=== PATIENT | male | born 1970 | race Caucasian/White ===

== ENCOUNTER 2020-04-13 12:35 | Outpatient (CLI) | payer OTHER | END 2020-04-13 12:36 | disposition home or self-care (01) | LOC: COV 12:35 | PROVIDERS: ATTEND Family Medicine | DX: R50.9 Fever, unspecified (principal); R06.02 Shortness of breath; R53.83 Other fatigue; J02.9 Acute pharyngitis, unspecified; Z20.828 Contact with and (suspected) exposure to other viral communicable diseases ==

== ENCOUNTER 2020-08-29 10:23 | Outpatient (CLI) | payer OTHER | END 2020-08-29 10:24 | disposition critical access hospital (66) | LOC: EMS 10:23 | PROVIDERS: ATTEND Emergency Medicine | DX: R10.32 Left lower quadrant pain (principal); R11.2 Nausea with vomiting, unspecified | CPT/HCPCS: A0425; A0427 ==

== ENCOUNTER 2020-08-29 10:50 | Emergency (ER) | payer OTHER ==
--- NOTE | 2020-08-29 10:55 | ED Physician Documentation ---
PD HPI BACK PAIN - Stated complaint Stated Complaint: L FLANK PX - History obtained from History obtained from: Patient, EMS - History of Present Illness Timing - onset: Enter time (729), Today Timing - duration: Hours Timing - details: Abrupt onset, Still present Location: Mid, Left Quality: Pain, Spasm, Sharp Associated symptoms: No: Fever, Weakness, Numbness, Incontinent of urine, Unable to urinate, Hematuria, Incontinent of stool Improves with: Nothing Worsened by: Other (nothing) Similar symptoms before: Diagnosis (kidney stone) Recently seen: Not recently seen - Additional information Additional information: Previously well 50-year-old male began to have developed pain in the left flank at approximately 7:30 AM. He has severe pain radiating down into his groin and he has had pain similar to this previously with a kidney stone. Eventually called 911 in route to the hospital he was administered 10 mg of morphine and 4 of Zofran without relief of his pain. He comes into the emergency department now writhing in pain to the left flank. PD PAST MEDICAL HISTORY - Present Medications Home Medications: Ambulatory Orders Medication Instructions Recorded Confirmed HYDROcod/ACETAM 5/325 [[place] 5/325] 1 - 2 ea PO Q6H PRN #12 tab 08/29/20 - Allergies Allergies/Adverse Reactions: Allergies Allergy/AdvReac Type Severity Reaction Status Date / Time Sulfa (Sulfonamide Allergy Anaphylaxis Verified 08/29/20 11:12 Antibiotics) PD ED PE NORMAL - Vitals Vital signs reviewed: Yes (Hypertensive) - General General: Alert and oriented X 3, Well developed/nourished, Other (50-year-old male writhing and grunting in pain.) - HEENT HEENT: Atraumatic, PERRL, EOMI - Neck Neck: Supple, no meningeal sign - Cardiac Cardiac: RRR, No murmur - Respiratory Respiratory: No respiratory distress, Clear bilaterally - Abdomen Abdomen: Normal bowel sounds, Soft, Non tender, Non distended, No organomegaly - Back Back: No CVA TTP, No spinal TTP - Derm Derm: Normal color, Warm and dry, No rash - Extremities Extremities: No deformity, No edema - Neuro Neuro: Alert and oriented X 3, 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, No motor deficit, No sensory deficit, Normal speech Eye Opening: Spontaneous Motor: Obeys Commands Verbal: Oriented GCS Score: 15 - Psych Psych: Normal mood, Normal affect Results - Vitals Vitals: Vital Signs - 24 hr 08/29/20 08/29/20 10:43 13:08 Temperature 36.4 C L 36.6 C Heart Rate 64 76 Respiratory 18 19 Rate Blood Pressure 139/95 H 119/69 O2 Saturation 100 98 Oxygen O2 Source Room air - Labs Labs: Laboratory Tests 08/29/20 08/29/20 11:05 11:05 WBC 6.0 RBC 5.12 Hgb 15.6 Hct 45.2 MCV 88.3 MCH 30.5 MCHC 34.5 RDW 12.7 Plt Count 257 MPV 10.4 Neut # (Auto) 3.7 Lymph # (Auto) 1.7 [place] # (Auto) 0.5 Eos # (Auto) 0.1 Baso # (Auto) 0.1 Absolute Nucleated RBC 0.00 Nucleated RBC % 0.0 Sodium 136 Potassium 3.5 Chloride 103 Carbon Dioxide 16 L Anion Gap 17.0 H BUN 17 Creatinine 1.0 Estimated GFR (MDRD) 80 L Glucose 141 H Calcium 8.9 Total Bilirubin 1.1 H AST 30 ALT 29 Alkaline Phosphatase 54 Total Protein 7.7 Albumin 4.3 Globulin 3.4 Albumin/Globulin Ratio 1.3 Lipase 30 - Rads (name of study) CT ab/pel Radiology: Prelim report reviewed (Impression: There is an obstructing 4 mm stone seen at the left ureterovesicular junction, with associated mild to moderate left-sided hydroureter and hydronephrosis. Bilateral nonobstructing kidney stones are seen.), EMP read indepedently, See rad report Procedures - Bedside sono Bedside sono by EMP: With use of bedside ultrasound the left kidney is imaged it is sonographically nontender and there is obvious hydronephrosis present. PD MEDICAL DECISION MAKING - ED course Complexity details: reviewed old records, reviewed results, re-evaluated patient, considered differential, d/w patient ED course: 50-year-old male with severe acute left-sided flank pain radiating into his groin has hydro on bedside ultrasound and this is confirmed to be a 4 mm stone at the UVJ. The patient is administered a liter of saline 30 mg of Toradol without much improvement in his pain. He is subsequently administered a milligram of Dilaudid with some improvement and then a 2 mg dose of Dilaudid improves his pain further then he has a severe sharp pain followed by resolution of his pain. I suspect he has passed his stone.He does have a large stone in the right kidney that is undescended. Departure - Departure Disposition: 01 Home, Self Care Clinical Impression: Ureterolithiasis Condition: Stable Instructions: ED Stone Renal Passed, ED Stone Renal W Colic Follow-Up: HALEY SANTANA MD [Primary Care Provider] - Prescriptions: HYDROcod/ACETAM 5/325 [[place] 5/325] 1 - 2 ea PO Q6H PRN #12 tab PRN Reason: Pain Discharge Date/Time: 08/29/20 13:43
[2020-08-29] MEDS ORDERED: KETOROLAC 30 MG/ML VIAL IVP STA (10:57)
[2020-08-29] MEDS ORDERED: SODIUM CHLORIDE 0.9% 1,000 ML IV STA (10:57)
[2020-08-29 11:10] LABS: BASOPHILS # (AUTO) 0.1 10^3/uL (0.0-0.1); EOSINOPHILS # (AUTO) 0.1 10^3/uL (0.0-0.7); EOSINOPHILS % (AUTO) 0.8 %; HGB - HEMOGLOBIN 15.6 g/dL (14.0-18.0); LYMPHOCYTES # (AUTO) 1.7 10^3/uL (1.5-3.5); MEAN CORPUSCULAR HEMOGLOBIN 30.5 pg (27.0-31.0); MEAN CORPUSCULAR HGB CONC 34.5 g/dL (32.0-36.0); MEAN CORPUSCULAR VOLUME 88.3 fL (80.0-94.0); MEAN PLATELET VOLUME 10.4 fL (7.4-11.4); MONOCYTES # (AUTO) 0.5 10^3/uL (0.0-1.0); NEUTROPHILS # (AUTO) 3.7 10^3/uL (1.5-6.6); PLT - PLATELET COUNT 257 10^3/uL (130-450); RED BLOOD COUNT 5.12 10^6/uL (4.70-6.10); RED CELL DISTRIBUTION WIDTH 12.7 % (12.0-15.0)
[2020-08-29] MEDS ORDERED: HYDROmorphone 1 MG/ML CARPUJECT IVP STA ×2 (11:11→11:45)
--- NOTE | 2020-08-29 11:40 | CT Report ---
PROCEDURE: Abdomen/Pelvis WO INDICATIONS: L flank pain hydro on bedside TECHNIQUE: Noncontrast 5 mm thick sections acquired from the diaphragms to the symphysis. 5 mm coronal and sagi ttal reformats were then performed. For radiation dose reduction, the following was used: automated exposure control, adjustment of mA and/or kV according to patient size. COMPARISON: None. FINDINGS: Image quality: Excellent. ABDOMEN: Lung bases: Lung bases are clear. Heart size is normal. Solid organs: Liver and spleen are normal in size. Gallbladder wall does not appear thickened. P ancreas is normal in contours. No adrenal nodules. There is an obstructing stone seen at the left ureterovesicular junction, as on series 3 image 137 an d on series 6 image 57 that measures up to 4 mm. There is associated mild to moderate left-sided hydr oureter and hydronephrosis. The streaking kidney stones are seen, which measure up to 5 mm on the right and up to 3 mm on the lef t. At the inferior pole of the right kidney, there is a simple appearing moderate density cyst that kelly ures up to 2.5 cm. The kidneys demonstrate normal size. There is no right-sided hydronephrosis. Peritoneum and bowel: Unenhanced bowel loops demonstrate normal wall thickness and caliber. No free fluid or air. Diverticulosis can be seen, without roma findings of active diverticulitis. A normal appendix is incidentally noted. Nodes and vessels: No retroperitoneal or mesenteric adenopathy by size criteria. Aorta and inferior vena cava are normal in caliber. Miscellaneous: No ventral hernias. PELVIS: Genitourinary: Bladder wall thickness is normal. No bladder stones are seen. Miscellaneous: No inguinal adenopathy. Bilateral fat-containing inguinal hernias are seen, left lar mp than right. Bones: No suspicious bony lesions. No vertebral body compression fractures. IMPRESSION: There is an obstructing 4 mm stone seen at the left ureterovesicular junction, with associated mild t o moderate left-sided hydroureter and hydronephrosis. Bilateral nonobstructing kidney stones are seen. Incidental note is made of: Simple appearing right renal cyst Normal appendix Diverticulosis, without findings of active diverticulitis. Fat-containing bilateral inguinal hernias, left larger than right Reviewed by: Leon Rush MD on 08/29/2020 10:38 AM [place] Approved by: Leon Rush MD on 08/29/2020 10:38 AM [facility] Station ID: [id number]
[2020-08-29 11:44] LABS: ALBUMIN 4.3 g/dL (3.2-5.5); ALBUMIN/GLOBULIN RATIO 1.3 (1.0-2.2); BILIRUBIN,TOTAL 1.1 mg/dL (0.2-1.0); CALCIUM 8.9 mg/dL (8.5-10.3); TOTAL PROTEIN 7.7 g/dL (6.7-8.2)
[2020-08-29] MEDS ORDERED: ONDANSETRON 4 MG/2 ML VIAL IVP STA (11:45)
[2020-08-29 13:09] VITALS: BP 119/69
== END 2020-08-29 13:43 | disposition home or self-care (01) ==
LOC: EDUNIT# → ED 10:50
DX: N13.2 Hydronephrosis with renal and ureteral calculous obstruction (principal)
CPT/HCPCS: 36415; 74176; 80053; 83690; 85025; 96374; 96375; 96376; 99284; J1170